=== PATIENT | female | born 1965 | race Caucasian/White ===

== ENCOUNTER → 2017-06-25 | Outpatient (CLI) | payer OTHER ==
[~2017-06-25] MED LIST: ACET650T40 PO; ALLO-2 PO; ALLO100T70 PO; BUPR-472 PO; BUPR300T56 PO; CHOL500050 PO; CLIN-75 PO; CLOT30CR39 TP; CYAN1000 IM; DIPH-911 PO; DOXY-228 PO; DOXY25TA54 PO; FLU20 PO; FLUO-202 PO; FLUO40CA67 PO; FLUO40CA76 PO; IBUP-1687 PO; IBUP200C71 PO; LISI-362 PO; LORA-1456 PO; MAGN500C10 PO; MULT-885 PO; OMEG300C PO; ONDA4TAB PO; ONDA8TAB91 PO; OXYC-865 PO; PANT40TA63 PO; PER PO; PHEN200T32 PO; PRE5 PO; PRED20TA6 PO; PRED50TA22 PO; RAN150 PO; RANI150C17 PO; SULF-198 PO; [UNRECOGNIZED DRUG - CODE] PO; [UNRECOGNIZED DRUG - CODE] PO; [UNRECOGNIZED DRUG - REMARK] PO
--- NOTE | 2017-06-26 08:55 | RADIOLOGY IMAGING REPORT ---
FACILITY: [facility] PATIENT NAME: WEST TINOCO : [id number] MR: [id number] V: [id number] EXAM DATE: ORDERING PHYSICIAN: AMY DUEÑAS TECHNOLOGIST: Мария Marley PROCEDURE:BILATERAL DIGITAL SCREENING MAMMOGRAM WITH CAD ASSISTED INTERPRETATION AND 3D BREAST TOMOSYNTHESIS. COMPARISON:Prior mammograms dated 12/20/13, 06/26/10. INDICATIONS:SCREENING FINDINGS: A small amount of fibroglandular tissue is seen throughout the breasts. The parenchymal pattern has remained stable when allowing for difference in mammographic technique and patient positioning. There is no evidence of malignant appearing mass, malignant appearing calcification or other secondary sign of malignancy in either breast. DIAGNOSTIC CATEGORY 1--NEGATIVE. RECOMMENDATIONS: ROUTINE MAMMOGRAM AND CLINICAL EVALUATION. IMPRESSION: Bi-RADS 1: No significant abnormality is seen. Images were reviewed with R2CAD and 3D breast tomosynthesis. Dictated by: Stefani Lee M.D. on 06/25/2017 at 15:53 Transcribed by: JEFFREY on 06/25/2017 at 18:38 Approved by: Stefani Lee M.D. on 06/26/2017 at 8:54 [facility]
== END ==
LOC: MAMO 00:36
PROVIDERS: ATTEND Emergency Medicine
DX: Z12.31 Encounter for screening mammogram for malignant neoplasm of breast (principal)
CPT/HCPCS: 77063; 77067

== ENCOUNTER 2017-07-17 08:57 | Outpatient (RCR) | payer OTHER ==
--- NOTE | 2017-05-09 07:45 | ONC Progress Note - NP.Halsey ---
Patient History Date of Service May 09, 2017 Reason For Visit/HPI Patient is seen in the clinic today for follow-up of her recently diagnosed autoimmune hemolytic anemia. Patient is currently on prednisone. She previously was complaining of some sweating, shortness of breath and wheezing, however this is improved as the doses been able to be decreased. Patient has had increased weight will be in on prednisone. She is trying to watch her weight and is trying to eat more vegetables and protein. She continues to have pain in her back which she reports radiates down to her feet with occasional numbness and tingling. This occurs more often to as she is walking that it does at rest. She denies any trauma to the back. She has tried some exercises but does not believe this is helping. He has tried Aleve with minimal results She will contact her primary care provider and have it evaluated. Problem List (1) Autoimmune hemolytic anemia Oncology History Diagnosis 1. Endocervical carcinoma. 2. Gout. 3. Depression. 4. Autoimmune hemolytic anemia, warm antibody. Patient was started on prednisone with a taper. Platelets have remained in a stable range. CHIEF COMPLAINT Patient is here today for followup of her autoimmune hemolytic anemia. ONCOLOGY HISTORY The patient is a 51-year-old woman. Presentation for postcoital bleeding. PROCEDURES 1. Cervical biopsy done January 10, 2014, which came back positive for adenocarcinoma of the endocervix. 2. Radical abdominal hysterectomy with bilateral salpingo-oophorectomy with bilateral pelvic lymph node dissection done February 13, [address] Stanislav Espinoza in [place]. 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 There was negative lymphovascular invasion, focally involving the mucosal margin at three to six quadrants. A total of 11 pelvic lymph nodes were examined and all came back negative for malignancy. STAGE Stage IB (pT1b, pN0 cM0). TREATMENT Patient received chemoradiation between March 13, 2014 through April 22, 2014. She received five weekly doses of Cisplatin during her radiation therapy. Medical History Family History: FH: HTN (hypertension) FATHER MOTHER FH: colon cancer Sister (39) Paternal Uncle, , Age:50's - 60 FH: colon polyps FATHER Brother FH: diabetes mellitus MOTHER FH: hyperlipidemia MOTHER FH: uterine cancer Paternal Grandmother Psychosocial History Social History The patient is . Does not have children. 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 No abuse of tobacco, alcohol or drugs. Smoking History: No (1 PPD X 20 YRS. QUIT 2011) Smoking Status: Former Smoker Medications and Allergies Active Scripts Prednisone (PREDNISONE) 20 Mg Tablet, 90 MG PO QDAY, #120 TAB 1 Refill Prov:ROSEAMRIE PAUL ACCOUNT SERVICES REPRESENTATIVE-BC, ONC 03/24/17 Lisinopril (LISINOPRIL) 10 Mg Tablet, 1 TAB PO QDAY, #90 TAB 3 Refills Prov:AMY DUEÑAS MD 10/07/16 Allopurinol (Allopurinol) 300 Mg Tablet, 1 TAB PO DAILY, #90 TAB 4 Refills Prov:AMY DUEÑAS MD 09/23/16 Reported Medications Pantoprazole Sodium (PROTONIX) 40 Mg Tablet.dr, 40 MG PO QDAY, TAB.SR 02/21/17 Ibuprofen (ADVIL) 200 Mg Tablet, 2 TAB PO PRN Y for PAIN 09/19/16 Acetaminophen (ACETAMINOPHEN) 650 Mg Tablet.er, 2 TAB PO PRN for PAIN, TAB 09/19/16 Doxylamine Succinate (UNISOM SLEEP AID) 25 Mg Tablet, 1 TAB PO HS 09/19/16 Ranitidine Hcl (RANITIDINE HCL) 150 Mg Capsule, 1 CAP PO DAILY Y for HEARTBURN, CAPSULE 09/19/16 Allergies: Coded Allergies: cephalexin (Verified Allergy, Intermediate, HIVES, SWELLING, 12/10/16) Review of System/Physical Exam Review of Systems All Systems Reviewed/Normal: Yes, Except as Noted Musculoskeletal: Positive for Muscle Pain, Positive for Joint Pain, Positive for Bone Pain Neurologic: Tingling of Feet Physical Exam Vital Signs Temperature: 98.2 Pulse: 98 BP Systolic: 131 BP Diastolic: 88 Respiratory Rate: 16 O2 SAT: 94 O2 Delivery: Room Air Height (inches) 68.00 Weight lb: 262 Weight oz: 8.0 Weight Kg (Matthias): [phone] Pain: 3 ECOG Score: 1 General: Stable, Well Developed, Well Nourished, Not In Acute Distress Neck: Supple Lungs: Clear to Auscultation Heart: Regular Rate, Regular Rhythm, No Gallops, No Murmurs Abdomen: Soft and Nontender, Other Extremities: No Cyanosis, No Clubbing, No Edema Psychiatric: Mood appears normal, Affect appears normal Skin: No Bruising (bruising has significantly improved) Diagnostic Studies Diagnostic Studies Laboratory Item Value Date Time White Blood Count 6.1 k/uL 05/09/17899 Red Blood Count 3.96 M/uL L 05/09/17899 Hemoglobin 12.9 g/dL 05/09/17899 Hematocrit 38.4 % 05/09/17899 Mean Corpuscular Volume 97.1 fL H 05/09/17899 Mean Corpuscular Hemoglobin 32.6 pg 05/09/17899 Mean Corpuscular Hemoglobin Concent 33.6 g/dL 05/09/17899 Red Cell Distribution Width 15.3 % H 05/09/17899 Platelet Count 297 K/uL 05/09/17899 Item Value Date Time Hemoglobin 13.3 g/dL 05/02/17 0000 Hematocrit 38.4 % 05/02/17 White Blood Count 8.0 k/uL 05/02/17 Mean Corpuscular Hemoglobin Concent 34.6 g/dL 05/02/17 Assessment and Plan Assessment & Plan ASSESSMENT 1. Autoimmune hemolytic anemia, proved by high absolute reticulocyte count, high LDH at 654, low haptoglobin less than 10. Patient started treatment with prednisone 100 mg daily with improvement of her hemoglobin from 9.1 to 11.4. It was then decreased to 90 mg daily and her hemoglobin was 13.2 and patient actually felt better with improvement of her energy. She then decreased from 90 mg to 70 mg. She has her hemoglobin checked weekly. It has remained stable so she has been able to decrease the prednisone dose by 20 mg until until she reached the 30 mg dose and then has been decreasing by 5 mg weekly. She is currently on 20 mg and is scheduled to start 15 mg tomorrow. Platelet level is 297,000. Patient has been called with results. 2. 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 Pathology was positive for 1.3 cm adenocarcinoma of the endocervix with positive cervical margin. Because of the positive margin the patient received chemotherapy and radiation therapy. She received treatment with chemoradiation between March 13, 2014 through April 22, 2014. She received five weekly doses of cisplatin during her radiation therapy. Patient currently is doing very well. Her last CA-125 was normal at 20 and the patient in complete remission. We will continue to follow every three months with CBC, chem panel and CA-125. 3. Gout with intermittent flare-ups, on allopurinol. 4. Depression, on treatment. PLAN 1. Continue prednisone taper. I will decrease the dose from 90 to 70 mg. CBC to be checked weekly. Will be on 15 mg for platelet count of 297,000 2. Continue prednisone taper by 5 mg weekly as long as her hemoglobin is stable and normal. 3. Patient to return in one month with CBC 4. Patient to contact us for any new concern or complaints. Return to clinic in 4 weeks 5. Follow with primary for her continuous back pain with radiating pain to her feet causing tingling I personally spent a total of 20 minutes. Of that 15 minutes was counseling/ coordination of patient's care. See my note above for details. Copies to: AMY DUEÑAS MD, NANCY J ACCOUNT SERVICES REPRESENTATIVE-BC, ONC May 09, 2017 07:45
[2017-05-09 08:47] VITALS: BP_SYST 139; BP_SYST 146; BP_DIAS 89; BP_DIAS 93
[2017-05-09 09:17] LABS: PLATELET COUNT, AUTOMATED 297 K/uL (150-450)
[2017-05-19 09:19] LABS: PLATELET COUNT, AUTOMATED 312 K/uL (150-450)
--- NOTE | 2017-05-19 15:27 | Oncology Note ---
Patient calls the clinic today for results of her platelet level. Platelet level is currently over 300,000 and remains stable, previously it was 297,000. Patient is currently on 15 mg of prednisone daily and will decrease it to 10 mg daily 7 days and have a repeat platelet level. As long as this remains stable patient will decrease to 5 mg daily 7 days and then 2.5 mg 7 days and then discontinue. Prescription for 5 mg tabs of prednisone was sent to [facility]. ROSEMARIE PAUL-BC, ONC May 19, 2017 15:27
[2017-05-26 08:14] VITALS: BP 136/98
[2017-05-26 08:22] LABS: PLATELET COUNT, AUTOMATED 276 K/uL (150-450)
[2017-06-04 08:24] LABS: PLATELET COUNT, AUTOMATED 205 K/uL (150-450)
[2017-06-04 08:35] VITALS: BP 136/72
--- NOTE | 2017-06-05 08:20 | ONC Progress Note - NP.Halsey ---
Patient History Date of Service Jun 05, 2017 Reason For Visit/HPI Patient is seen in the clinic today for follow-up of her recently diagnosed autoimmune hemolytic anemia. Patient is currently on prednisone 2.5 mg daily. She has been tapering the dose and her labs remained relatively stable. They have decreased with each dose but still in a normal range. She did gain quite a bit of weight and is able to maintain and is trying to lose weight. She was having difficulty walking due to back pain. She recently had an MRI and will be referred to orthopedics for further evaluation. She was also started on vitamin D 50,000 units 3 times a week for vitamin D deficiency. Her primary care also changed her medication of Paxil to Wellbutrin to see if that would help with mood and weight management. She will follow with primary care in 2 weeks. She denies any abdominal discomfort. She has not followed for her cervical cancer recently. I will draw CA 125 and she will follow to review these labs. Problem List (1) Cervical cancer (2) Depression (3) Autoimmune hemolytic anemia Oncology History Diagnosis 1. Endocervical carcinoma. 2. Gout. 3. Depression. 4. Autoimmune hemolytic anemia, warm antibody. Patient was started on prednisone with a taper. Platelets have remained in a stable range. CHIEF COMPLAINT Patient is here today for followup of her autoimmune hemolytic anemia. ONCOLOGY HISTORY The patient is a 51-year-old woman. Presentation for postcoital bleeding. PROCEDURES 1. Cervical biopsy done January 10, 2014, which came back positive for adenocarcinoma of the endocervix. 2. Radical abdominal hysterectomy with bilateral salpingo-oophorectomy with bilateral pelvic lymph node dissection done February 13, [address] Stanislav Espinoza in [place]. 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 There was negative lymphovascular invasion, focally involving the mucosal margin at three to six quadrants. A total of 11 pelvic lymph nodes were examined and all came back negative for malignancy. STAGE Stage IB (pT1b, pN0 cM0). TREATMENT Patient received chemoradiation between March 13, 2014 through April 22, 2014. She received five weekly doses of Cisplatin during her radiation therapy. Medical History Family History: FH: HTN (hypertension) FATHER MOTHER FH: colon cancer Sister (39) Paternal Uncle, , Age:50's - 60 FH: colon polyps FATHER Brother FH: diabetes mellitus MOTHER FH: hyperlipidemia MOTHER FH: uterine cancer Paternal Grandmother Psychosocial History Social History The patient is . Does not have children. 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. No abuse of tobacco, alcohol or drugs. Smoking History: No (1 PPD X 20 YRS. QUIT 2011) Smoking Status: Former Smoker Medications and Allergies Active Scripts Bupropion Hcl (WELLBUTRIN XL) 150 Mg Tab.er.24h, 150 MG PO QDAY, #30 TAB Take 1 daily or 4 days then increase to 2 every morning Prov:AMY DUEÑAS MD 06/04/17 Cholecalciferol (Vitamin D3) (VITAMIN D3) 50,000 Unit Capsule, 81873 UNIT PO 3XW , #36 CAPSULE Prov:AMY DUEÑAS MD 06/04/17 Prednisone 5 Mg Tab (PREDNISONE 5 MG TAB) 5 Mg Tablet, 5 MG PO BID, #30 TAB Take 10 mg daily x 7 days then decrease to 5mg daily x 7 days then 2.5mg daily x 7 days then stop Prov:ROSEMARIE PAUL STEAM TENDER-BC, ONC 05/19/17 Lisinopril (LISINOPRIL) 10 Mg Tablet, 1 TAB PO QDAY, #90 TAB 3 Refills Prov:AMY DUEÑAS MD 10/07/16 Allopurinol (Allopurinol) 300 Mg Tablet, 1 TAB PO DAILY, #90 TAB 4 Refills Prov:AMY DUEÑAS MD 09/23/16 Reported Medications Acetaminophen (ACETAMINOPHEN) 650 Mg Tablet.er, 2 TAB PO PRN for PAIN, TAB 09/19/16 Doxylamine Succinate (UNISOM SLEEP AID) 25 Mg Tablet, 1 TAB PO HS 09/19/16 Ranitidine Hcl (RANITIDINE HCL) 150 Mg Capsule, 1 CAP PO DAILY Y for HEARTBURN, CAPSULE 09/19/16 Discontinued Reported Medications Pantoprazole Sodium (PROTONIX) 40 Mg Tablet.dr, 40 MG PO QDAY, TAB.SR 02/21/17 Ibuprofen (ADVIL) 200 Mg Tablet, 2 TAB PO PRN Y for PAIN 09/19/16 Allergies: Coded Allergies: cephalexin (Verified Allergy, Intermediate, HIVES, SWELLING, 12/10/16) Review of System/Physical Exam Review of Systems Constitutional: Positive for Appetite/Weight Change (weight gain thought to be related to steroid therapy) Hematologic: Positive for Fatigue Musculoskeletal: Positive for Muscle Pain, Positive for Bone Pain Psychiatric: Depression Physical Exam Vital Signs Temperature: 97.2 Pulse: 93 BP Systolic: 136 BP Diastolic: 72 Respiratory Rate: 16 O2 SAT: 94 O2 Delivery: Room Air Height (inches) 68.00 Weight lb: 262 Weight oz: 8.0 Weight Kg (Matthias): [id number] Pain: 2 ECOG Score: 1 General: Stable, Well Developed, Well Nourished, Not In Acute Distress HEENT: No Trauma, No Conjunctivitis, No Icterus Lungs: Clear to Auscultation Heart: Regular Rate, Regular Rhythm, No Gallops Abdomen: Soft and Nontender, No Hepatosplenomegaly, No Masses Extremities: No Cyanosis, No Clubbing, No Edema Psychiatric: Mood appears normal, Affect appears normal Skin: No Skin Rashes, No Bruising, No Purpura Diagnostic Studies Diagnostic Studies Laboratory Laboratory Tests 06/04/17 08:15 Laboratory Tests 05/09/17 09:00: Peripheral Blood Smear Yes 06/04/17 08:15: White Blood Count 4.6, Red Blood Count 4.04, Hemoglobin 12.9, Hematocrit 38.5, Mean Corpuscular Volume 95.4, Mean Corpuscular Hemoglobin 31.9, Mean Corpuscular Hemoglobin Concent 33.5, Red Cell Distribution Width 15.6, Platelet Count 205, Mean Platelet Volume 6.7, Neutrophils (%) (Auto) 72.7, Lymphocytes (% ) (Auto) 14.1, Monocytes (%) (Auto) 10.4, Eosinophils (%) (Auto) 1.3, Basophils (%) (Auto) 1.5, Nucleated RBC Relative Count (auto) 0.1, Neutrophils # (Auto) 3.4, Lymphocytes # (Auto) 0.7, Monocytes # (Auto) 0.5, Eosinophils # (Auto) 0.1 , Basophils # (Auto) 0.1, Nucleated RBC Absolute Count (auto) 0.01 Assessment and Plan Assessment & Plan ASSESSMENT 1. Autoimmune hemolytic anemia, proved by high absolute reticulocyte count, high LDH at 654, low haptoglobin less than 10. Patient started treatment with prednisone 100 mg daily with improvement of her hemoglobin from 9.1 to 11.4. It was then decreased to 90 mg daily and her hemoglobin was 13.2 and patient actually felt better with improvement of her energy. She then decreased from 90 mg to 70 mg. She has her hemoglobin checked weekly. It has remained stable so she has been able to decrease the prednisone dose by 20 mg until until she reached the 30 mg dose and then has been decreasing by 5 mg weekly. She is currently on 2.5 mg x 4 days and then will decrease to 2.5 every other day. She will repeat labs after [place] to include CBC, CMP and CEA 125. Platelet level is currently 205,000, hemoglobin is 12.9 and has remained stable. 2. 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 Pathology was positive for 1.3 cm adenocarcinoma of the endocervix with positive cervical margin. Because of the positive margin the patient received chemotherapy and radiation therapy. She received treatment with chemoradiation between March 13, 2014 through April 22, 2014. She received five weekly doses of cisplatin during her radiation therapy. Patient currently is doing very well. Her last CA-125 was normal at 20 and the patient in complete remission. Patient will be followed in 2 weeks to review labs to include CBC, chem panel and CA-125. She is asymptomatic and has no evidence of recurrence. Recent MRI showed no soft tissue abnormalities 3. Gout with intermittent flare-ups, on allopurinol. 4. Depression, on treatment. Recently change from Paxil to Wellbutrin 5. Back pain and leg pain. Recent MRI completed showing arthritis. Patient will be referred to orthopedics for further evaluation. 6. Vitamin D deficiency. Patient is currently on 50,000 units vitamin D3 3 days a week. She will follow with primary as scheduled. PLAN 1. Continue prednisone taper. She is currently on 2.5 mg and will decrease to 2.5 every other day. 2. She will return in 2 weeks with repeat CBC, CMP, and CA 125 3 patient will be followed in the clinic for her autoimmune hemolytic anemia and her endocervical adenocarcinoma. I personally spent a total of 20 minutes. Of that 15 minutes was counseling/ coordination of patient's care. See my note above for details. Copies to: AMY DUEÑAS MD, NANCY J STEAM TENDER-BC, ONC Jun 05, 2017 08:20
[2017-06-05 08:36] VITALS: BP 126/86
[2017-06-18 13:46] VITALS: BP 118/82
[2017-06-18 13:49] LABS: PLATELET COUNT, AUTOMATED 293 K/uL (150-450)
[2017-06-19 10:06] VITALS: BP 119/85
--- NOTE | 2017-06-19 18:44 | ONCOLOGY FOLLOW UP NOTE ---
EVENT DATE: June 19, 2017 DIAGNOSES 1. Endocervical carcinoma. 2. Gout. 3. Depression. 4. Autoimmune hemolytic anemia, warm antibody. CHIEF COMPLAINT Patient is here today for followup of her autoimmune hemolytic anemia and endocervical carcinoma. ONCOLOGY HISTORY The patient is a 51-year-old woman. Presentation for postcoital bleeding. PROCEDURES 1. Cervical biopsy done January 10, 2014, which came back positive for adenocarcinoma of the endocervix. 2. Radical abdominal hysterectomy with bilateral salpingo-oophorectomy with bilateral pelvic lymph node dissection done February 13, [address] Stanislav Espinoza in [place]. 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 There was negative lymphovascular invasion, focally involving the mucosal margin at three to six quadrants. A total of 11 pelvic lymph nodes were examined and all came back negative for malignancy. STAGE Stage IB (pT1b, pN0 cM0). TREATMENT Patient received chemoradiation between March 13, 2014 through April 22, 2014. She received five weekly doses of Cisplatin during her radiation therapy. HISTORY OF PRESENT ILLNESS Patient is here today for followup of her autoimmune hemolytic anemia and endocervical adenocarcinoma. She is complaining of pain in her legs and weakness in the thigh muscles. She has also some neuropathic symptoms in her feet, and the patient was found to have moderate spinal stenosis in the lower back lately, and she is followed by her orthopedic surgeon. She had cellulitis of the skin of the abdominal wall, currently on Bactrim for that, which is getting better. PAST SURGICAL HISTORY 1. Tonsillectomy as a child. 2. [place] tooth extraction. 3. Radical hysterectomy with bilateral salpingo-oophorectomy, and bilateral pelvic lymph node dissection done on February 03, 2014. FAMILY HISTORY Sister with colon cancer at the age of 39. Brother had eight polyps during his colonoscopy. Maternal uncle with colon cancer in his 50's. Another paternal uncle with colon cancer at old age. Paternal grandmother with uterine cancer. Two maternal aunts with breast cancer at old age. Father with basal cell carcinoma of the skin. SOCIAL HISTORY The patient is . Does not have children. 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 No abuse of tobacco, alcohol or drugs. CURRENT MEDICATIONS 1. Fluoxetine hydrochloride 40 mg daily. 2. Ibuprofen 200 mg every six hours p.r.n. 3. Unisom 50 mg at bedtime. 4. Zantac 150 mg as needed. 5. Caffeine 100 mg every morning, chewable. ALLERGIES CEPHALEXIN which causes generalized hives. REVIEW OF SYSTEMS CONSTITUTIONAL: Patient has some sweating. HEENT: Ears: No tinnitus or hearing problem. Nose: The patient has runny nose. Throat: No sore throat or mouth ulcers. Eyes: No diplopia or visual changes. RESPIRATORY: She has shortness of breath and wheezing. CARDIOVASCULAR: No chest pain, orthopnea, or paroxysmal nocturnal dyspnea (PND) . No edema. No palpitations. GASTROINTESTINAL: She has diarrhea most of the time for the last week with nonbloody loose stools. GENITOURINARY: No hematuria or dysuria. MUSCULOSKELETAL: Patient has pain in her legs. NEUROLOGICAL: She has weakness in the thigh muscles, most probably from her prednisone therapy. She has also neuropathic symptoms on her feet due to moderate spinal stenosis of the lower back. HEMATOLOGICAL: She bruises easily. Her fatigue is getting much better since she started on prednisone. SKIN: She had recent cellulitis of the abdominal wall, which is under treatment with Bactrim. PSYCHIATRIC: No anxiety or depression. PHYSICAL EXAMINATION GENERAL: Looks stable. Well-developed, well-nourished, and in no acute distress. VITAL SIGNS: Blood pressure 119/85, pulse 95 per minute, respirations 16 per minute, temperature 98.5, pulse ox 93% on room air. HEENT: Head: Atraumatic. No sinus tenderness to palpation. Eyes: No icterus or conjunctivitis. Mouth and throat: No oral thrush or mucositis. NECK: Supple. No cervical or supraclavicular lymphadenopathy. LUNGS: Clear to auscultation and percussion bilaterally. HEART: Regular rate and rhythm. No gallops, murmurs, clicks or rubs. ABDOMEN: Soft and lax. No tenderness. Scar from recent surgery is noted and healing very well. No hepatosplenomegaly. No masses. EXTREMITIES: No cyanosis, clubbing or edema. LYMPHATICS: No peripheral lymphadenopathy. NEUROLOGICAL: Conscious, alert and oriented times three. No focal motor or sensory deficits. PSYCHIATRIC: Mood and affect appear normal. SKIN: No skin rash, bruise or purpuric eruption. DIAGNOSTIC DATA CBC showed a white count of 5.3, hemoglobin 13.2, hematocrit 39.2, platelets 293 ,000. Chem panel totally normal, except sodium 134, carbon dioxide 21, blood sugar 115, AST 39. CA-125 is pending. ASSESSMENT 1. Autoimmune hemolytic anemia, proved by high absolute reticulocyte count, high LDH at 654, low haptoglobin less than 10. Patient started treatment with prednisone 100 mg with improvement of her hemoglobin from 9.1 to 11.4. She continued prednisone taper after that, and currently she is on 2.5 mg for the last 10 days. Her current hemoglobin is normal at 13.2 and hematocrit 39.2. I am planning to stop her prednisone. I will see her again in a month with CBC. Patient was advised, if she feels weak, tired and fatigued, to contact us and to get her blood count checked to see if she has a relapse of her autoimmune hemolytic anemia or not. If the patient will develop relapse of her autoimmune hemolytic anemia I will consider treatment with rituximab in the future. 2. Stage IB (pT1b, pN0 cM0) endocervical adenocarcinoma status post radical hysterectomy and pelvic lymph node dissection with bilateral salpingo- oophorectomy done February 03, 2014. Pathology was positive for 1.3 cm adenocarcinoma of the endocervix with positive cervical margin. Because of the positive margin the patient received chemotherapy and radiation therapy. She received treatment with chemoradiation between March 13, 2014 through April 22, 2014. She received five weekly doses of cisplatin during her radiation therapy. Patient is currently in complete remission. Her CA-125 is pending for today. Patient currently in complete remission without any symptoms. I will see her again in three months with CBC, chem panel and CA- 125. 3. Gout with intermittent flare-ups, on allopurinol. 4. Depression, on treatment. PLAN 1. Stop prednisone. 2. Patient to return in one month with CBC, chem panel. 3. Await the result of the CA-125 today. 4. Patient is to contact us for any new concerns or complaints. MTDD
[2017-07-14 08:28] VITALS: BP 126/96
[2017-07-14 08:46] LABS: PLATELET COUNT, AUTOMATED 273 K/uL (150-450)
[~2017-07-17] VITALS: Ht 172.7 cm; Wt 127.3 kg
[2017-07-17 09:11] VITALS: BP 115/76
--- NOTE | 2017-07-17 09:19 | ONC Progress Note - NP.Halsey ---
Patient History Date of Service Jul 17, 2017 Reason For Visit/HPI Patient is seen in the clinic today for follow-up of her recently diagnosed autoimmune hemolytic anemia. Patient previously was on prednisone 2.5 mg daily and this was decreased further and then discontinued on 06-19-17. Labs drawn today show a normal hemoglobin. She shares that since being off of prednisone she has been able to lose some weight. She is also feeling better currently on Wellbutrin. She had a mammogram completed which was normal. In review of healthcare screening, she had a colonoscopy last year and reports that there is no need to repeat for 10 years. She has started on vitamin D 50,000 units 3 times a week for her deficiency and is been followed by primary care for management. She has not had cholesterol, TSH or iron studies completed and will obtain health fair labs because she can get them free at work. She also has not had a PATTERN DATA OPERATOR exam. She will schedule this at her primary care provider in the near future. In review, today she reports that her lower extremity weakness in her legs is improved. Her lower back pain with radiating numbness to her feet is reported to be a hereditary skeletal structure which she should receive surgery. Her brother completed surgery recently and reports complete resolution. She will consider this but would like to lose some weight prior to the procedure. No concerns today. Problem List (1) Depression (2) Cervical cancer (3) Morbid obesity (4) Autoimmune hemolytic anemia Oncology History Diagnosis 1. Endocervical carcinoma. 2. Gout. 3. Depression. 4. Autoimmune hemolytic anemia, warm antibody. Patient was started on prednisone with a taper. Platelets have remained in a stable range. CHIEF COMPLAINT Patient is here today for followup of her autoimmune hemolytic anemia. ONCOLOGY HISTORY The patient is a 51-year-old woman. Presentation for postcoital bleeding. PROCEDURES 1. Cervical biopsy done January 10, 2014, which came back positive for adenocarcinoma of the endocervix. 2. Radical abdominal hysterectomy with bilateral salpingo-oophorectomy with bilateral pelvic lymph node dissection done February 13, [address] Stanislav Espinoza in [place]. 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 There was negative lymphovascular invasion, focally involving the mucosal margin at three to six quadrants. A total of 11 pelvic lymph nodes were examined and all came back negative for malignancy. STAGE Stage IB (pT1b, pN0 cM0). TREATMENT Patient received chemoradiation between March 13, 2014 through April 22, 2014. She received five weekly doses of Cisplatin during her radiation therapy. Medical History Family History: FH: HTN (hypertension) FATHER MOTHER FH: colon cancer Sister (39) Paternal Uncle, , Age:50's - 60 FH: colon polyps FATHER Brother FH: diabetes mellitus MOTHER FH: hyperlipidemia MOTHER FH: uterine cancer Paternal Grandmother Psychosocial History Social History The patient is . Does not have children. 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 No abuse of tobacco, alcohol or drugs. Smoking History: No (1 PPD X 20 YRS. QUIT 2011) Smoking Status: Former Smoker Medications and Allergies Active Scripts Bupropion Hcl (BUPROPION XL) 300 Mg Tab.er.24h, 300 MG PO QDAY, #90 TAB 3 Refills Prov:AMY DUEÑAS MD 06/18/17 Cholecalciferol (Vitamin D3) (VITAMIN D3) 50,000 Unit Capsule, 37323 UNIT PO 3XW , #36 CAPSULE Prov:AMY DUEÑAS MD 06/04/17 Lisinopril (LISINOPRIL) 10 Mg Tablet, 1 TAB PO QDAY, #90 TAB 3 Refills Prov:AMY DUEÑAS MD 10/07/16 Allopurinol (Allopurinol) 300 Mg Tablet, 1 TAB PO DAILY, #90 TAB 4 Refills Prov:AMY DUEÑAS MD 09/23/16 Reported Medications Acetaminophen (ACETAMINOPHEN) 650 Mg Tablet.er, 2 TAB PO PRN for PAIN, TAB 09/19/16 Doxylamine Succinate (UNISOM SLEEP AID) 25 Mg Tablet, 1 TAB PO HS 09/19/16 Ranitidine Hcl (RANITIDINE HCL) 150 Mg Capsule, 1 CAP PO DAILY Y for HEARTBURN, CAPSULE 09/19/16 Discontinued Scripts Sulfamethoxazole/Trimet 800-160 Mg Tab (BACTRIM DS TABLET) 1 Each Tablet, 1 TAB PO Q12H, #20 TAB Prov:JIMMY BOLAÑOS PA-C 06/13/17 Prednisone 5 Mg Tab (PREDNISONE 5 MG TAB) 5 Mg Tablet, 5 MG PO BID, #30 TAB Take 10 mg daily x 7 days then decrease to 5mg daily x 7 days then 2.5mg daily x 7 days then stop Prov:ROSEMARIE PAUL AIRBRUSH PAINTER-BC, ONC 05/19/17 Allergies: Coded Allergies: cephalexin (Verified Allergy, Intermediate, HIVES, SWELLING, 06/13/17) Review of System/Physical Exam Review of Systems All Systems Reviewed/Normal: Yes, Except as Noted Hematologic: Positive for Fatigue, Positive for Weakness Musculoskeletal: Positive for Bone Pain Psychiatric: Depression Physical Exam Vital Signs Temperature: 97.6 Pulse: 88 BP Systolic: 126 BP Diastolic: 96 Respiratory Rate: 18 O2 SAT: 94 O2 Delivery: Room Air Height (inches) 68.00 Weight lb: 262 Weight oz: 8.0 Weight Kg (Matthias): [phone] Pain: 0 ECOG Score: 1 General: Stable, Well Developed, Well Nourished, Not In Acute Distress HEENT: No Trauma, No Conjunctivitis Neck: Supple Lungs: Clear to Auscultation Heart: Regular Rate, Regular Rhythm, No Gallops Abdomen: Soft and Nontender, No Hepatosplenomegaly, No Masses Extremities: No Cyanosis, No Clubbing, No Edema Lymphadenopathy: No Cervical Psychiatric: Mood appears normal, Affect appears normal Skin: No Skin Rashes, No Bruising, No Purpura Diagnostic Studies Diagnostic Studies Laboratory Laboratory Tests 07/14/17 08:30 Laboratory Tests 05/09/17 09:00: Peripheral Blood Smear Yes 06/18/17 13:33: CA 125 Antigen 21 07/14/17 08:30: White Blood Count 4.1, Red Blood Count 4.30, Hemoglobin 13.6, Hematocrit 39.8, Mean Corpuscular Volume 92.6, Mean Corpuscular Hemoglobin 31.7, Mean Corpuscular Hemoglobin Concent 34.2, Red Cell Distribution Width 14.7, Platelet Count 273, Mean Platelet Volume 7.2, Neutrophils (%) (Auto) 72.9, Lymphocytes (% ) (Auto) 12.9, Monocytes (%) (Auto) 11.1, Eosinophils (%) (Auto) 2.6, Basophils (%) (Auto) 0.5, Nucleated RBC Relative Count (auto) 0.4, Neutrophils # (Auto) 3.0, Lymphocytes # (Auto) 0.5, Monocytes # (Auto) 0.5, Eosinophils # (Auto) 0.1 , Basophils # (Auto) 0.0, Nucleated RBC Absolute Count (auto) 0.02, Sodium Level 137, Potassium Level 4.3, Chloride Level 102, Carbon Dioxide Level 23, Blood Urea Nitrogen 20, Creatinine 1.00, Glomerular Filtration Rate Calc 58.9, Random Glucose 114, Calcium Level 9.1, Total Bilirubin 0.5, Aspartate Amino Transf (AST/SGOT) 39, Alanine Aminotransferase (ALT/SGPT) 56, Alkaline Phosphatase 50, Total Protein 6.3, Albumin 3.6 Radiology PROCEDURE: BILATERAL DIGITAL SCREENING MAMMOGRAM WITH CAD ASSISTED INTERPRETATION AND 3D BREAST TOMOSYNTHESIS. COMPARISON: Prior mammograms dated 12/20/13, 06/26/10. INDICATIONS: SCREENING FINDINGS: A small amount of fibroglandular tissue is seen throughout the breasts. The parenchymal pattern has remained stable when allowing for difference in mammographic technique and patient positioning. There is no evidence of malignant appearing mass, malignant appearing calcification or other secondary sign of malignancy in either breast. DIAGNOSTIC CATEGORY 1--NEGATIVE. RECOMMENDATIONS: ROUTINE MAMMOGRAM AND CLINICAL EVALUATION. IMPRESSION: Bi-RADS 1: No significant abnormality is seen. Images were reviewed with R2CAD and 3D breast tomosynthesis. CT abdomen and pelvis with IV contrast Indication: Umbilical pain and drainage. Comparison: 01/30/2016.. Technique: Axial CT images were obtained through the abdomen and pelvis during injection of nonionic iodinated intravenous contrast. Reformatted coronal and sagittal images were also obtained. One of the following dose optimization techniques was utilized in the performance of this exam: Automated exposure control; adjustment of the mA and/ or kV according to the patient's size; or use of an iterative reconstruction technique. Specific details can be referenced in the facility's radiology CT exam operational policy. Contrast: 75 ml of Isovue-370 IV contrast. Findings: Lower lung park: Limited views lower lung field are unremarkable. Liver: Liver is diffusely hypodense consistent fatty infiltration with some focal fatty sparing around gallbladder fossa. This is unchanged. No focal lesions are identified. Biliary: Gallbladder appears unremarkable as well as the intra and extra hepatic biliary system. Pancreas: Normal appearance. Spleen: Normal appearance. Adrenal glands: Unremarkable. Kidneys / retroperitoneum: No evidence of nephrolithiasis or hydronephrosis. Left kidney shows 2 subcentimeter hypodensities which are stable most likely tiny cysts but too small characterize. The right kidney shows no discrete lesion. Bowel / peritoneum / mesenteries: The visualized gastrointestinal tract, including the appendix, within normal limits. The stomach is unremarkable. No free air, free fluid, fluid collections or areas of inflammation seen within the abdomen and pelvis. There are small umbilical hernia containing fat. Adjacent to the right side of the umbilicus is a linear area of inflammation and soft tissue density which could be induration along the incision site. There is no discrete well-formed fluid collection or abscess. Lymph node assessment: No pathologic adenopathy identified. Pelvic structures: Status post hysterectomy. The remaining pelvic structures visualized within normal limits. Vessels: No significant atherosclerotic calcifications seen throughout a nonaneurysmal abdominal aorta and branches. Musculoskeletal / Body wall: No acute or aggressive osseous abnormality. Degenerative changes spine. IMPRESSION: 1. Just to the right of the umbilicus, is a linear area of soft tissue density and induration/inflammation which may be along a new incision site. There is no well-formed fluid collection or abscess. No extension into the abdominal cavity. 2. Other chronic stable findings as above. Report Dictated By: Ken Miranda at 06/13/2017 2:15 PM Assessment and Plan Assessment & Plan ASSESSMENT 1. Autoimmune hemolytic anemia, proved by high absolute reticulocyte count, high LDH at 654, low haptoglobin less than 10. Patient started treatment with prednisone 100 mg daily with improvement of her hemoglobin from 9.1 to 11.4. It was then decreased to 90 mg daily and her hemoglobin was 13.2 and patient actually felt better with improvement of her energy. She then decreased from 90 mg to 70 mg. She had her hemoglobin checked weekly. It remained stable so she was able to decrease the prednisone dose by 20 mg until until she reached the 30 mg dose and then has been decreasing by 5 mg weekly and then 2.5 and discontinued on 06-19-17. Hemoglobin remains stable and in a normal range today. Patient is feeling well being off of the prednisone. No concerns today. She will repeat CBC, CMP in 3 months. 2. 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 Pathology was positive for 1.3 cm adenocarcinoma of the endocervix with positive cervical margin. Because of the positive margin the patient received chemotherapy and radiation therapy. She received treatment with chemoradiation between March 13, 2014 through April 22, 2014. She received five weekly doses of cisplatin during her radiation therapy. Patient currently is doing very well. Her last CA-125 was normal at 20 and most recent drawn was 21. The patient is in complete remission. She is asymptomatic and has no evidence of recurrence. Recent diagnostic study showed no soft tissue abnormalities. She will repeat a CA 125 tumor marker in 6 months. She is encouraged to have a PATTERN DATA OPERATOR exam through her primary care provider as she has not had one in multiple years. She is concerned about vaginal stenosis. She does have a dilator at home but has not used it. She is not sexually active. She is encouraged to share this with her provider and a small speculum will be used. 3. Gout with intermittent flare-ups, on allopurinol. 4. Depression, on treatment. Recently change from Paxil to Wellbutrin and reports that she is feeling well. 5. Back pain and leg pain. Recent MRI completed showing arthritis. Patient followed with orthopedics and received a recommendation for surgical procedure. Patient would like to wait until she loses some weight. 6. Vitamin D deficiency. Patient is currently on 50,000 units vitamin D3 3 days a week. She will follow with primary as scheduled. She is encouraged to do weightbearing exercises. Mammogram completed recently was unremarkable. Colonoscopy completed a year ago was unremarkable. PLAN 1. Completion of prednisone for her autoimmune hemolytic anemia. Follow-up in 3 months with CBC, CMP. 2. Follow-up for endocervical adenocarcinoma. Patient to follow in 3 months with CBC and CMP, CA 125 should be repeated in 6 months 3 Patient to follow with primary care provider for PATTERN DATA OPERATOR exam, cholesterol, TSH and iron studies which could be drawn through the [facility] labs. 4. Patient to call if she has questions or concerns. I personally spent a total of 30 minutes. Of that 25 minutes was counseling/ coordination of patient's care. See my note above for details. Copies to: AMY DUEÑAS MD, NANCY J AIRBRUSH PAINTER-BC, ONC Jul 17, 2017 09:19
== END 2017-08-06 ==
LOC: ONC 08:57
PROVIDERS: ATTEND Nurse Practitioner Family
DX: D59.1 Other autoimmune hemolytic anemias (principal); Z85.41 Personal history of malignant neoplasm of cervix uteri; Z92.3 Personal history of irradiation; Z92.21 Personal history of antineoplastic chemotherapy; M10.9 Gout, unspecified; Z87.891 Personal history of nicotine dependence; Z79.899 Other long term (current) drug therapy; E55.9 Vitamin D deficiency, unspecified; R53.83 Other fatigue; Z79.1 Long term (current) use of non-steroidal anti-inflammatories (NSAID)
CPT/HCPCS: 36415; 82040; 82247; 82310; 82374; 82435; 82565; 82947; 84075; 84132; 84155; 84295; 84450; 84460; 84520; 85025; 86304; 99212

== ENCOUNTER 2017-12-12 15:30 | Outpatient (RCR) | payer OTHER ==
[2017-10-06 08:54] VITALS: BP 136/97
[2017-10-06 09:06] LABS: PLATELET COUNT, AUTOMATED 250 K/uL (150-450)
[2017-10-10 08:34] VITALS: BP 128/94
--- NOTE | 2017-10-11 17:37 | ONCOLOGY FOLLOW UP NOTE ---
EVENT DATE: October 10, 2017 DIAGNOSES 1. Endocervical carcinoma. 2. Gout. 3. Depression. 4. Autoimmune hemolytic anemia, warm antibody. CHIEF COMPLAINT Patient is here today for followup of her autoimmune hemolytic anemia and endocervical carcinoma. ONCOLOGY HISTORY The patient is a 52-year-old woman. Presentation for postcoital bleeding. PROCEDURES 1. Cervical biopsy done January 10, 2014, which came back positive for adenocarcinoma of the endocervix. 2. Radical abdominal hysterectomy with bilateral salpingo-oophorectomy with bilateral pelvic lymph node dissection done February 13, [address] Stanislav Espinoza in [place]. 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 There was negative lymphovascular invasion, focally involving the mucosal margin at three to six quadrants. A total of 11 pelvic lymph nodes were examined and all came back negative for malignancy. STAGE Stage IB (pT1b, pN0 cM0). TREATMENT Patient received chemoradiation between March 13, 2014 through April 22, 2014. She received five weekly doses of Cisplatin during her radiation therapy. HISTORY OF PRESENT ILLNESS Patient is here today for followup of her autoimmune hemolytic anemia and endocervical carcinoma. She is doing fine currently. She has back pain lately. She has neuropathy in her feet with numbness. She has occasional headache. She has occasional fatigue, but other than that she is stable. PAST MEDICAL HISTORY 1. Endocervical adenocarcinoma. 2. Gout. 3. Depression. 4. Autoimmune hemolytic anemia. PAST SURGICAL HISTORY 1. Tonsillectomy as a child. 2. [place] tooth extraction. 3. Radical hysterectomy with bilateral salpingo-oophorectomy, and bilateral pelvic lymph node dissection done on February 03, 2014. FAMILY HISTORY Sister with colon cancer at the age of 39. Brother had eight polyps during his colonoscopy. Maternal uncle with colon cancer in his 50's. Another paternal uncle with colon cancer at old age. Paternal grandmother with uterine cancer. Two maternal aunts with breast cancer at old age. Father with basal cell carcinoma of the skin. SOCIAL HISTORY The patient is . Does not have children. 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 No abuse of tobacco, alcohol or drugs. CURRENT MEDICATIONS 1. Fluoxetine hydrochloride 40 mg daily. 2. Ibuprofen 200 mg every six hours p.r.n. 3. Unisom 50 mg at bedtime. 4. Zantac 150 mg as needed. 5. Caffeine 100 mg every morning, chewable. ALLERGIES CEPHALEXIN which causes generalized hives. REVIEW OF SYSTEMS CONSTITUTIONAL: Patient has some sweating. HEENT: Ears: No tinnitus or hearing problem. Nose: The patient has runny nose. Throat: No sore throat or mouth ulcers. Eyes: No diplopia or visual changes. RESPIRATORY: She has shortness of breath and wheezing. CARDIOVASCULAR: No chest pain, orthopnea, or paroxysmal nocturnal dyspnea (PND) . No edema. No palpitations. GASTROINTESTINAL: She has diarrhea most of the time for the last week with nonbloody loose stools. GENITOURINARY: No hematuria or dysuria. MUSCULOSKELETAL: She has back pain. NEUROLOGICAL: She has numbness in the feet. She has occasional headache. HEMATOLOGICAL: She has occasional fatigue. SKIN: She had recent cellulitis of the abdominal wall, which is under treatment with Bactrim. PSYCHIATRIC: No anxiety or depression. PHYSICAL EXAMINATION GENERAL: Looks stable. Well-developed, well-nourished, and in no acute distress. VITAL SIGNS: Blood pressure 128/94, pulse 95 per minute, respirations 16 per minute, temperature 97.2, pulse ox 93% on room air. HEENT: Head: Atraumatic. No sinus tenderness to palpation. Eyes: No icterus or conjunctivitis. Mouth and throat: No oral thrush or mucositis. NECK: Supple. No cervical or supraclavicular lymphadenopathy. LUNGS: Clear to auscultation and percussion bilaterally. HEART: Regular rate and rhythm. No gallops, murmurs, clicks or rubs. ABDOMEN: Soft and lax. No tenderness. Scar from recent surgery is noted and healing very well. No hepatosplenomegaly. No masses. EXTREMITIES: No cyanosis, clubbing or edema. LYMPHATICS: No peripheral lymphadenopathy. NEUROLOGICAL: Conscious, alert and oriented times three. No focal motor or sensory deficits. PSYCHIATRIC: Mood and affect appear normal. SKIN: No skin rash, bruise or purpuric eruption. DIAGNOSTIC DATA CBC showed a white count of 4.4, hemoglobin 12.4, hematocrit 35.2, platelets 250 ,000. Chem panel totally normal, except total protein 6 and carbon dioxide 19. ASSESSMENT 1. Autoimmune hemolytic anemia, diagnosed with high reticulocyte count, high LDH at 654 and low haptoglobin less than 10. Patient treated with prednisone 100 mg with improvement of her hemoglobin and normalization. She had successful prednisone taper after that and the patient is off prednisone since May 2017. Her current hemoglobin is 12.4 g/dL, which is normal. I am planning to continue followup. I will check her CBC monthly now, and I will see her in two months with CBC at that time. 2. Stage IB (pT1b, pN0 cM0) endocervical adenocarcinoma status post radical hysterectomy and pelvic lymph node dissection with bilateral salpingo- oophorectomy done February 03, 2014. Pathology was positive for 1.3 cm adenocarcinoma of the endocervix with positive cervical margin. Because of the positive margin the patient received chemotherapy and radiation therapy. She received treatment with chemoradiation between March 13, 2014 through April 22, 2014, and she received five weekly doses of cisplatin during radiation therapy. Currently she is in remission. I am planning to see her in two months, and I will check her CBC, chem panel and CA-125 at that time. 3. Gout with intermittent flare-ups, on allopurinol. 4. Depression on treatment. PLAN 1. Continue followup. 2. Patient to return in two months with CBC, chem panel and CA-125. 3. CBC in one month. 4. Patient is to contact us for any new concern or complaints. [facility]
[2017-11-05 08:29] VITALS: BP 123/81
[2017-11-05 08:42] LABS: PLATELET COUNT, AUTOMATED 296 K/uL (150-450)
[2017-12-08 08:27] LABS: PLATELET COUNT, AUTOMATED 278 K/uL (150-450)
[2017-12-08 12:35] VITALS: BP 128/83
[2017-12-11 14:09] VITALS: BP 135/88
--- NOTE | 2017-12-11 15:43 | Oncology Note ---
EVALUATION~DATE~& TIME: 12/11/17 @1410 PRIMARY CARE PHYSICIAN: Nilesh Opsina LAST SEEN BY DR. KEVIN MD 10/16/17 ACCOMPANIED BY: Chief complaint: DIAGNOSIS Oncology History - January 10, 2014, Cervical biopsy done which came back positive for adenocarcinoma of the endocervix. with bilateral pelvic lymph node dissection done February 13, [address] Stanislav Espinoza in [place]. 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 There was negative lymphovascular invasion, focally involving the mucosal margin at three to six quadrants. A total of 11 pelvic lymph nodes were examined and all came back negative for malignancy. March 08, 2014 power port placement for chemotherapy 03/25/2014 cancer Staging : Stage IB (pT1b, pN0 cM0). Tapered off steroid for Autoimmune hemolytic Anemia in May 2017 Treatment March 13, 2014 through April 22, 2014, She received treatment with chemoradiation between and she received five weekly doses of cisplatin during radiation therapy. Currently she is in remission. 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 Patient presents to cancer center today for management of her disease. Patient reports being in her usual state of health, except her chronic back and leg pain and neuropathy. she has no other complaints. patient informs me that she is has intentionally lost 16 Lbs in preparation for her back surgery in May of 2018. She had previously gained 30lbs in one month period once she was started on steroids. Patient was tapered completely off steroids in May 2017. Her Hbg has a drop of 0.6 in the last three months. We will recheck hemolysis panel today. Hgb today is 11.8. last value of hapto on [employer] was 10L. low. Living conditions: Diagnostic tests & Reports Reviewed on [facility] PAST MEDICAL/SURGICAL HISTORY 1. Endocervical adenocarcinoma. 2. Gout. 3. Depression. 4. Autoimmune hemolytic anemia. 5. cellulitis of abdominal wall PAST SURGICAL HISTORY 1. Tonsillectomy as a child. 2. [place] tooth extraction. 3. Radical hysterectomy with bilateral salpingo-oophorectomy, and bilateral pelvic lymph node dissection done on February 03, 2014. FAMILY~HISTORY: Sister with colon cancer at the age of 39. Brother had eight polyps during his colonoscopy. Maternal uncle with colon cancer in his 50's. Another paternal uncle with colon cancer at old age. Paternal grandmother with uterine cancer. Two maternal aunts with breast cancer at old age. Father with basal cell carcinoma of the skin. Psychosocial History The patient is . Does not have children. 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 No abuse of tobacco, alcohol or drugs. Medications and Allergies Reported Medications SOCIAL /OCCUPATION HISTORY: PREVENTIVE' UP TO DATE Mammogram DUE 05/2018 Colonoscopy done in 2016, Polyps were removed . Due in 2021. given strong familial history. PAP: patient has not had pap or inspector of weights and measures follow up since 2013. Due PAP now 2018 MEDICATIONS: ALLERGIES: Cephalexin Review of System CONSTITUTION: denies fevers, sweats, change in appetite, energy, +intentional weight loss 16lbs since May 2017 EYES: No blurred vision, no double vision ENT: no mouth soreness, trouble swallowing, neck masses RESPIRATORY: Denies pleuritic pain, dyspnea, wheezing, coughing CARDIOVASCULAR: Denies cardiac type chest pain, palpitations, leg edema GI: denies trouble swallowing, indigestion, abdominal pain, diarrhea, constipation, : No blood in the urine, no urinary urgency/frequency, no dysuria, no MUSCULOSKELETAL: back pain NEURO: denies headaches, dizziness, + neuropathy, focal weakness SKIN: denies bruising, rashes, changing or suspicious lesions, HEMATOLOGY: denies spontaneous bleeding, denies non-palpable nodes PSYCH: denies mood changes Physical Exam Vital Signs Temperature: 97.1 Pulse: 91 BP Systolic: 135 BP Diastolic: 88 Respiratory Rate: 16 O2 SAT: 93 % RA O2 Delivery: Height (inches) Weight lb: Weight oz: Weight Kg (Matthias): Pain: PERFORMANCE STATUS: ECOG O- fully active, able to carry on all pre-disease performance w/o restriction GENERAL: pleasant conversant, in no apparent distress ORAL: mucosa moist without lesions, pharynx not injected EYES: no icterus, no pale conjunctivae, EOMI, PERRLA NECK: supple, no masses, no palpable lymph nodes LUNGS: clear to auscultation bilaterally, breathing, non-labored CVS: regular rate, rhythm, nl s1, s2, no murmurs ABD: normal bowel sounds, soft non tender, non-distended, no hepatomegaly, no splenomegaly, no masses EXTREMITIES: no edema, no cyanosis MUSCULOSKELETAL: grossly normal gait, range of motion stable NEURO: alert, appropriate, motor grossly normal, sensory grossly non focal, and cranial nerves grossly intact NODES: no cervical, supraclavicular, axillary, inguinal adenopathy SKIN: no ecchymosis, petechiae, no open wounds, no itchiness. PSYCH: normal mood and affect, good judgment and insight. 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 DIAGNOSTIC DATA CBC showed a white count of 4.9 , hemoglobin 11.8, mavdctfbtl31.5 , platelets 278. Chem panel totally normal except Sodium at 136, creatinine 0.80; BUN 20, T. Bili 1.3 CA125 Antigen 21.0 1. Autoimmune hemolytic anemia, diagnosed with high reticulocyte count, high LDH at 654 and low haptoglobin less than 10. Patient treated with prednisone 100 mg with improvement of her hemoglobin and normalization. She had successful prednisone taper after that and the patient is off prednisone since May 2017. Her current hemoglobin is 12.4 g/dL, which is normal. planning to continue followup. 2. Stage IB (pT1b, pN0 cM0) endocervical adenocarcinoma status post radical hysterectomy and pelvic lymph node dissection with bilateral salpingo- oophorectomy done February 03, 2014. Pathology was positive for 1.3 cm adenocarcinoma of the endocervix with positive cervical margin. Because of the positive margin the patient received chemotherapy and radiation therapy. She received treatment with chemoradiation between March 13, 2014 through April 22, 2014, and she received five weekly doses of cisplatin during radiation therapy. Currently she is in remission. 3. Gout with intermittent flare-ups, on allopurinol. 4. Depression on Wellbutrin reports that she is feeling well. 5. Back pain and leg pain ( chronic) .MRI completed showed arthritis. Patient followed with orthopedics and received a recommendation for surgical procedure. Patient would like to wait until she loses some weight. 6. Vitamin D deficiency. was treated with 50,000 units vitamin D3 3 days a week. encouraged to do weightbearing exercises. we will recheck today 7. Mammogram completed in 05/2017 unremarkable. Due in 06/2018 Colonoscopy completed 2016 was unremarkable.Due in 2021. 8. Vaginal Atrophy. She is concerned about vaginal stenosis. She does have a dilator at home but has not used it. She is not sexually active. She is encouraged to share this with her provider and a small speculum will be used. PLAN 1. Hemolysis panel to be drawn today including serum 25-hydroxyvitamin D (25[OH ]D) concentration 2. Continue followup. RTC Q 2months check CBC, chem panel and CA-125, hemolysis panel: Retic count, Haptoglobin, HDL 3. CBC in one month. 4. Patient to follow with primary care provider for WOUND NURSE exam, cholesterol, Vitamin D, TSH and iron studies which could be drawn through the [facility] labs. 5. Patient is to contact us for any new concern or complaints. 6. patient to f/u with MD/ROBERT a week before her planned surgery in May 2018. TIME SPENT: 25 minutes > 20 minutes includes but not limited to discussion, counselling and co-ordination~ of care. Discussion with other health care providers, record review, review of lab work, diagnostic tests. Plan discussed extensively with patient. All the questions answered today. Thank you for the opportunity to be involved in the care of Liliya Lisa Billing Level: Return visit level 4 KATALINA MENCHACA, ONC Dec 11, 2017 14:18
[~2017-12-12 15:30] MED LIST changes: +CALC500T6 PO; +IBUP-136 PO; -IBUP200C71 PO; +ZINC10LO9 PO
[2017-12-12 15:46] VITALS: BP 126/93
[2017-12-23] MEDS ORDERED: ALLO-2 PO (08:36)
== END 2018-01-01 ==
LOC: SPU 15:30
PROVIDERS: ATTEND Internal Medicine Hematology
DX: D59.1 Other autoimmune hemolytic anemias (principal); Z85.41 Personal history of malignant neoplasm of cervix uteri; Z92.21 Personal history of antineoplastic chemotherapy; Z57.1 Occupational exposure to radiation; M10.9 Gout, unspecified; F32.9 Major depressive disorder, single episode, unspecified; G62.9 Polyneuropathy, unspecified; Z79.899 Other long term (current) drug therapy; R06.02 Shortness of breath; M54.9 Dorsalgia, unspecified
CPT/HCPCS: 36415; 82040; 82247; 82306; 82310; 82374; 82435; 82565; 82947; 83010; 83615; 84075; 84132; 84155; 84295; 84450; 84460; 84520; 85025; 85045; 86304; 99212

== ENCOUNTER 2018-04-15 16:13 | Outpatient (RCR) | payer OTHER ==
[2018-01-30 10:24] LABS: PLATELET COUNT, AUTOMATED 305 K/uL (150-450)
[2018-02-05 09:35] VITALS: BP 119/84
--- NOTE | 2018-02-05 16:23 | ONCOLOGY FOLLOW UP NOTE ---
EVENT DATE: February 05, 2018 DIAGNOSES 1. Endocervical carcinoma. 2. Gout. 3. Depression. 4. Autoimmune hemolytic anemia, warm antibody. CHIEF COMPLAINT Patient is here today for followup of her autoimmune hemolytic anemia and endocervical carcinoma. ONCOLOGY HISTORY The patient is a 52-year-old woman. Presentation for postcoital bleeding. PROCEDURES 1. Cervical biopsy done January 10, 2014, which came back positive for adenocarcinoma of the endocervix. 2. Radical abdominal hysterectomy with bilateral salpingo-oophorectomy with bilateral pelvic lymph node dissection done February 13, [address] Stanislav Espinoza in [place]. 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 There was negative lymphovascular invasion, focally involving the mucosal margin at three to six quadrants. A total of 11 pelvic lymph nodes were examined and all came back negative for malignancy. STAGE Stage IB (pT1b, pN0 cM0). TREATMENT Patient received chemoradiation between March 13, 2014 through April 22, 2014. She received five weekly doses of Cisplatin during her radiation therapy. HISTORY OF PRESENT ILLNESS Patient is here today for followup of her autoimmune hemolytic anemia and endocervical carcinoma. She is doing fine currently except for having some arthritis of the ankles and hands with pain. 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 She is a little bit weak, tired and fatigued. PAST MEDICAL HISTORY 1. Endocervical adenocarcinoma. 2. Gout. 3. Depression. 4. Autoimmune hemolytic anemia. PAST SURGICAL HISTORY 1. Tonsillectomy as a child. 2. [place] tooth extraction. 3. Radical hysterectomy with bilateral salpingo-oophorectomy, and bilateral pelvic lymph node dissection done on February 03, 2014. FAMILY HISTORY Sister with colon cancer at the age of 39. Brother had eight polyps during his colonoscopy. Maternal uncle with colon cancer in his 50's. Another paternal uncle with colon cancer at old age. Paternal grandmother with uterine cancer. Two maternal aunts with breast cancer at old age. Father with basal cell carcinoma of the skin. SOCIAL HISTORY The patient is . Does not have children. 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 No abuse of tobacco, alcohol or drugs. CURRENT MEDICATIONS 1. Fluoxetine hydrochloride 40 mg daily. 2. Ibuprofen 200 mg every six hours p.r.n. 3. Unisom 50 mg at bedtime. 4. Zantac 150 mg as needed. 5. Caffeine 100 mg every morning, chewable. ALLERGIES CEPHALEXIN which causes generalized hives. REVIEW OF SYSTEMS CONSTITUTIONAL: Patient has some sweating. HEENT: Ears: No tinnitus or hearing problem. Nose: The patient has runny nose. Throat: No sore throat or mouth ulcers. Eyes: No diplopia or visual changes. RESPIRATORY: She has shortness of breath and wheezing. CARDIOVASCULAR: No chest pain, orthopnea, or paroxysmal nocturnal dyspnea (PND) . No edema. No palpitations. GASTROINTESTINAL: She has diarrhea most of the time for the last week with nonbloody loose stools. GENITOURINARY: No hematuria or dysuria. MUSCULOSKELETAL: She has pain in he ankles and hands from arthritis. NEUROLOGICAL: She has tingling and numbness in the right foot due to radicular pain. HEMATOLOGICAL: She is weak, tired and fatigued. SKIN: She had recent cellulitis of the abdominal wall, which is under treatment with Bactrim. PSYCHIATRIC: No anxiety or depression. PHYSICAL EXAMINATION GENERAL: Looks stable. Well-developed, well-nourished, and in no acute distress. VITAL SIGNS: Blood pressure 119/84, pulse 91 per minute, respirations 16 per minute, temperature 98.1, pulse ox 92% on room air. HEENT: Head: Atraumatic. No sinus tenderness to palpation. Eyes: No icterus or conjunctivitis. Mouth and throat: No oral thrush or mucositis. NECK: Supple. No cervical or supraclavicular lymphadenopathy. LUNGS: Clear to auscultation and percussion bilaterally. HEART: Regular rate and rhythm. No gallops, murmurs, clicks or rubs. ABDOMEN: Soft and lax. No tenderness. Scar from recent surgery is noted and healing very well. No hepatosplenomegaly. No masses. EXTREMITIES: No cyanosis, clubbing or edema. LYMPHATICS: No peripheral lymphadenopathy. NEUROLOGICAL: Conscious, alert and oriented times three. No focal motor or sensory deficits. PSYCHIATRIC: Mood and affect appear normal. SKIN: No skin rash, bruise or purpuric eruption. DIAGNOSTIC DATA CBC showed a white count of 5000, hemoglobin 12, hematocrit 34.2, platelets 305, 000. Chem panel totally normal, except BUN 20. LDH is 535. Absolute reticulocyte count is 0.2576. Haptoglobin is less than 10. ASSESSMENT 1. Autoimmune hemolytic anemia, diagnosed with high reticulocyte count, high LDH at 654 and low haptoglobin less than 10. Patient treated with prednisone 100 mg with improvement of her hemoglobin and normalization. She had successful prednisone taper after that and the patient is off prednisone since May 2017. Her haptoglobin is still less than 10 and the patient may have compensated hemolysis as her hemoglobin currently is normal at 12 g/dL. I am planning to put her on folic acid 1 mg daily. I will repeat her CBC and haptoglobin in six weeks, and I will see her again in three months with CBC and haptoglobin, retic count, LDH by that time. 2. Stage IB (pT1b, pN0 cM0) endocervical adenocarcinoma status post radical hysterectomy and pelvic lymph node dissection with bilateral salpingo- oophorectomy done February 03, 2014. Pathology was positive for 1.3 cm adenocarcinoma of the endocervix with positive cervical margin. Because of the positive margin the patient received chemotherapy and radiation therapy. She received treatment with chemoradiation between March 13, 2014 through April 22, 2014, and she received weekly doses of cisplatin during radiation therapy. Currently she is in remission. I am planning to see her in three months from now, and I will check her CBC, chem panel and CA-125 at that time. 3. Gout with intermittent flare-ups, on allopurinol. 4. Depression on treatment. PLAN 1. Continue followup. 2. CBC, haptoglobin to be checked in six weeks. 3. Folic acid 1 mg p.o. daily. 4. Patient to return in three months with CBC, chem panel, haptoglobin, LDH, retic count and CA-125. 5. Patient is to contact us for any new concerns or complaints. MTDD
[2018-03-20 08:12] VITALS: BP 118/80
[2018-03-20 08:19] LABS: PLATELET COUNT, AUTOMATED 273 K/uL (150-450)
[~2018-04-15 16:13] MED LIST changes: +MULT-1335 PO
[2018-04-15 16:29] VITALS: BP 127/90
== END 2018-04-29 ==
LOC: SPU 16:13
PROVIDERS: ATTEND Internal Medicine Hematology
DX: D59.1 Other autoimmune hemolytic anemias (principal); Z85.41 Personal history of malignant neoplasm of cervix uteri; Z92.21 Personal history of antineoplastic chemotherapy; Z57.1 Occupational exposure to radiation; M10.9 Gout, unspecified; F32.9 Major depressive disorder, single episode, unspecified; G62.9 Polyneuropathy, unspecified; Z79.899 Other long term (current) drug therapy; R06.02 Shortness of breath; M54.9 Dorsalgia, unspecified; Z87.891 Personal history of nicotine dependence; Z90.710 Acquired absence of both cervix and uterus
CPT/HCPCS: 36415; 82040; 82247; 82248; 82310; 82374; 82435; 82565; 82947; 83010; 83615; 84075; 84132; 84155; 84295; 84450; 84460; 84520; 85025; 85045; 99212

== ENCOUNTER 2018-05-28 14:58 | Outpatient (RCR) | payer OTHER ==
[2018-05-11 08:21] VITALS: BP 137/85
[2018-05-11 15:42] LABS: PLATELET COUNT, AUTOMATED 306 K/uL (150-450)
[2018-05-28 15:07] VITALS: BP 132/93
[2018-05-28] MEDS ORDERED: INFLUENZA VIRUS VAC 0.5ML SYR IM ONLY ONE (15:25)
--- NOTE | 2018-05-29 02:45 | [facility] ONCOLOGY NOTE ---
EVENT DATE: May 28, 2018 DIAGNOSES 1. Endocervical carcinoma. 2. Gout. 3. Depression. 4. Autoimmune hemolytic anemia, warm antibody. CHIEF COMPLAINT Patient is here today for followup of her autoimmune hemolytic anemia and endocervical carcinoma. ONCOLOGY HISTORY The patient is a 52-year-old woman. Presentation for postcoital bleeding. PROCEDURES 1. Cervical biopsy done January 10, 2014, which came back positive for adenocarcinoma of the endocervix. 2. Radical abdominal hysterectomy with bilateral salpingo-oophorectomy with bilateral pelvic lymph node dissection done February 13, [address] Stanislav Espinoza in [place]. 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 There was negative lymphovascular invasion, focally involving the mucosal margin at three to six quadrants. A total of 11 pelvic lymph nodes were examined and all came back negative for malignancy. STAGE Stage IB (pT1b, pN0 cM0). TREATMENT Patient received chemoradiation between March 13, 2014 through April 22, 2014. She received five weekly doses of Cisplatin during her radiation therapy. HISTORY OF PRESENT ILLNESS Patient is here today for followup of her autoimmune hemolytic anemia and endocervical carcinoma. She is doing fine currently except for worsening joint pain, especially in the knees, back, legs, and hands. She has also occasional diarrhea and headache. She has also neuropathy in her feet. PAST MEDICAL HISTORY 1. Endocervical adenocarcinoma. 2. Gout. 3. Depression. 4. Autoimmune hemolytic anemia. PAST SURGICAL HISTORY 1. Tonsillectomy as a child. 2. [place] tooth extraction. 3. Radical hysterectomy with bilateral salpingo-oophorectomy, and bilateral pelvic lymph node dissection done on February 03, 2014. FAMILY HISTORY Sister with colon cancer at the age of 39. Brother had eight polyps during his colonoscopy. Maternal uncle with colon cancer in his 50's. Another paternal uncle with colon cancer at old age. Paternal grandmother with uterine cancer. Two maternal aunts with breast cancer at old age. Father with basal cell carcinoma of the skin. SOCIAL HISTORY The patient is . Does not have children. 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 No abuse of tobacco, alcohol or drugs. CURRENT MEDICATIONS 1. Fluoxetine hydrochloride 40 mg daily. 2. Ibuprofen 200 mg every six hours p.r.n. 3. Unisom 50 mg at bedtime. 4. Zantac 150 mg as needed. 5. Caffeine 100 mg every morning, chewable. ALLERGIES CEPHALEXIN which causes generalized hives. REVIEW OF SYSTEMS CONSTITUTIONAL: No appetite or weight change. No fever, chills or sweating. No recent infection. HEENT: Ears: No tinnitus or hearing problem. Nose: No nasal discharge or epistaxis. Throat: No sore throat or mouth ulcers. Eyes: No diplopia or visual changes. RESPIRATORY: No shortness of breath. No cough, expectoration or hemoptysis. CARDIOVASCULAR: No chest pain, orthopnea, or paroxysmal nocturnal dyspnea (PND). No edema. No palpitations. GASTROINTESTINAL: She has occasional diarrhea. GENITOURINARY: No hematuria or dysuria. MUSCULOSKELETAL: She has pain in the knees, back, legs, and hands. NEUROLOGICAL: She has tingling and numbness in her feet. She has occasional headache. HEMATOLOGIC/LYMPHATIC: No bleeding or easy bruising. No weakness or fatigued. No enlarged lymph nodes. SKIN: No skin rash or lumps. PSYCHIATRIC: No anxiety or depression. PHYSICAL EXAMINATION GENERAL: Looks stable. Well-developed, well-nourished, and in no acute distress. VITAL SIGNS: Blood pressure 132/93, pulse 90 per minute, respirations 18 per minute, temperature 97.5, pulse oximetry 95% on room air. HEENT: Head: Atraumatic. No sinus tenderness to palpation. Eyes: No icterus or conjunctivitis. Mouth and throat: No oral thrush or mucositis. NECK: Supple. No cervical or supraclavicular lymphadenopathy. LUNGS: Clear to auscultation and percussion bilaterally. HEART: Regular rate and rhythm. No gallops, murmurs, clicks or rubs. ABDOMEN: Soft and lax. No tenderness. No hepatosplenomegaly. No masses. EXTREMITIES: No cyanosis, clubbing or edema. LYMPHATICS: No peripheral lymphadenopathy. NEUROLOGICAL: Conscious, alert and oriented times three. No focal motor or sensory deficits. PSYCHIATRIC: Mood and affect appear normal. SKIN: No skin rash, bruise or purpuric eruption. DIAGNOSTIC DATA CBC showed a white count of 4.3, hemoglobin 12.7, hematocrit 36.6, platelet 306,000. Haptoglobin is less than 10. Absolute reticulocyte count is 0.1556, which is down from 0.2087. Chem panel totally normal except sodium 136, total protein 6. CA125 is 19, which is down from 21. ASSESSMENT 1. Autoimmune hemolytic anemia, diagnosed with high reticulocyte count, high LDH at 654, and low haptoglobin level of less than 10. Patient was started on treatment with prednisone 100 mg with improvement of her hemoglobin with normalization. She had successful prednisone taper after that, and she is off prednisone since May 2017. Her haptoglobins are still less than 10, so the patient has compensated hemolysis. Her current hemoglobin is 12.7, which is stable. I am planning to continue folic acid 1 mg daily. I will repeat her CBC, haptoglobin, LDH, absolute reticulocyte count, and total and direct bilirubin with her next visit in three months, and the patient was advised to report any excessive fatigue. 2. Stage IB (pT1b, pN0, cM0) endocervical adenocarcinoma, status post radical hysterectomy and pelvic lymph node dissection with bilateral salpingo- oophorectomy, done February 03, 2014. Pathology was positive for 1.3 cm adenocarcinoma of the endocervix with positive cervical margin. Because of the positive margin, the patient received chemotherapy and radiation therapy. She received treatment with chemoradiation between March 13, 2014, through April 22, 2014, and she received weekly doses of cisplatin during radiation therapy and currently is in complete remission. Her current CA125 is 19, which is down from 21. I am planning to continue followup every four months. 3. Gout with intermittent flare-ups, on allopurinol. 4. Depression, on treatment. PLAN 1. Continue followup. 2. Patient to return in three months with CBC, chem panel, CA125, LDH, absolute reticulocyte count, total and direct bilirubin, and haptoglobin level. 3. Patient to contact us for any new concern or complaints. MTDD
== END 2018-08-09 ==
LOC: ONC 14:58
PROVIDERS: ATTEND Internal Medicine Hematology
DX: D59.1 Other autoimmune hemolytic anemias (principal); Z85.41 Personal history of malignant neoplasm of cervix uteri; Z92.21 Personal history of antineoplastic chemotherapy; Z57.1 Occupational exposure to radiation; M10.9 Gout, unspecified; F32.9 Major depressive disorder, single episode, unspecified; G62.9 Polyneuropathy, unspecified; Z79.899 Other long term (current) drug therapy; R06.02 Shortness of breath; M54.9 Dorsalgia, unspecified; Z87.891 Personal history of nicotine dependence; Z90.710 Acquired absence of both cervix and uterus; Z23 Encounter for immunization
CPT/HCPCS: 36415; 82040; 82247; 82248; 82310; 82374; 82435; 82565; 82947; 83010; 83615; 84075; 84132; 84155; 84295; 84450; 84460; 84520; 85025; 85045; 86304; 90471; 90674; 99212

== ENCOUNTER 2018-10-26 16:18 | Outpatient (RCR) | payer OTHER ==
[2018-08-21 08:27] VITALS: BP 141/85
[2018-08-21 08:37] LABS: PLATELET COUNT, AUTOMATED 328 K/uL (150-450)
[2018-09-11 15:58] VITALS: BP 132/85
--- NOTE | 2018-09-12 03:58 | [facility] ONCOLOGY NOTE ---
EVENT DATE: September 11, 2018 DIAGNOSES 1. Endocervical carcinoma. 2. Gout. 3. Depression. 4. Autoimmune hemolytic anemia, warm antibody. CHIEF COMPLAINT Patient is here today for followup of her autoimmune hemolytic anemia and endocervical carcinoma. ONCOLOGY HISTORY The patient is a 53-year-old woman. Presentation for postcoital bleeding. PROCEDURES 1. Cervical biopsy done January 10, 2014, which came back positive for adenocarcinoma of the endocervix. 2. Radical abdominal hysterectomy with bilateral salpingo-oophorectomy with bilateral pelvic lymph node dissection done February 13, [address] Stanislav Espinoza in [place]. 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 There was negative lymphovascular invasion, focally involving the mucosal margin at three to six quadrants. A total of 11 pelvic lymph nodes were examined and all came back negative for malignancy. STAGE Stage IB (pT1b, pN0 cM0). TREATMENT Patient received chemoradiation between March 13, 2014 through April 22, 2014. She received five weekly doses of Cisplatin during her radiation therapy. HISTORY OF PRESENT ILLNESS Patient is here today for followup of her autoimmune hemolytic anemia and endocervical cancer. She is complaining of cough with expectoration, shortness of breath and wheezing. She has occasional diarrhea associated with abdominal cramps sometimes. She has also generalized musculoskeletal pain. She has headache. She bruises easily. PAST MEDICAL HISTORY 1. Endocervical adenocarcinoma. 2. Gout. 3. Depression. 4. Autoimmune hemolytic anemia. PAST SURGICAL HISTORY 1. Tonsillectomy as a child. 2. Boles tooth extraction. 3. Radical hysterectomy with bilateral salpingo-oophorectomy, and bilateral pelvic lymph node dissection done on February 03, 2014. FAMILY HISTORY Sister with colon cancer at the age of 39. Brother had eight polyps during his colonoscopy. Maternal uncle with colon cancer in his 50's. Another paternal uncle with colon cancer at old age. Paternal grandmother with uterine cancer. Two maternal aunts with breast cancer at old age. Father with basal cell carcinoma of the skin. SOCIAL HISTORY The patient is . Does not have children. 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 No abuse of tobacco, alcohol or drugs. CURRENT MEDICATIONS 1. Fluoxetine hydrochloride 40 mg daily. 2. Ibuprofen 200 mg every six hours p.r.n. 3. Unisom 50 mg at bedtime. 4. Zantac 150 mg as needed. 5. Caffeine 100 mg every morning, chewable. 6. Folic acid 1 mg daily. ALLERGIES CEPHALEXIN which causes generalized hives. REVIEW OF SYSTEMS CONSTITUTIONAL: No appetite or weight change. No fever, chills or sweating. No recent infection. HEENT: Ears: No tinnitus or hearing problem. Nose: No nasal discharge or epistaxis. Throat: No sore throat or mouth ulcers. Eyes: No diplopia or visual changes. RESPIRATORY: Patient has cough with expectoration, shortness of breath and wheezing. CARDIOVASCULAR: No chest pain, orthopnea, or paroxysmal nocturnal dyspnea (PND). No edema. No palpitations. GASTROINTESTINAL: She has occasional diarrhea associated with abdominal cramps. GENITOURINARY: No hematuria or dysuria. MUSCULOSKELETAL: She has generalized musculoskeletal pain. NEUROLOGICAL: She has occasional headache. HEMATOLOGIC/LYMPHATIC: She bruises easily. SKIN: No skin rash or lumps. PSYCHIATRIC: No anxiety or depression. PHYSICAL EXAMINATION GENERAL: Looks stable. Well-developed, well-nourished, and in no acute distress. VITAL SIGNS: Blood pressure 132/85, pulse 88 per minute, respirations 16 per minute, temperature 96.7, pulse oximetry 97% on room air. HEENT: Head: Atraumatic. No sinus tenderness to palpation. Eyes: No icterus or conjunctivitis. Mouth and throat: No oral thrush or mucositis. NECK: Supple. No cervical or supraclavicular lymphadenopathy. LUNGS: Clear to auscultation and percussion bilaterally. HEART: Regular rate and rhythm. No gallops, murmurs, clicks or rubs. ABDOMEN: Soft and lax. No tenderness. No hepatosplenomegaly. No masses. EXTREMITIES: No cyanosis, clubbing or edema. LYMPHATICS: No peripheral lymphadenopathy. NEUROLOGICAL: Conscious, alert and oriented times three. No focal motor or sensory deficits. PSYCHIATRIC: Mood and affect appear normal. SKIN: No skin rash, bruise or purpuric eruption. DIAGNOSTIC DATA CBC showed a white count of 5.1, hemoglobin 11.7, hematocrit 34.5, platelets 328,000. Absolute reticulocyte count is 0.2969. Haptoglobin is less than 10. LDH is elevated at 721 and total bilirubin is 1.3. Chem panel showed blood sugar 123, BUN 22. CA125 is normal at 19. ASSESSMENT 1. Autoimmune hemolytic anemia, diagnosed by high reticulocyte count, high LDH, and low haptoglobin less than 10. Patient treated with prednisone, started at 100 mg with improvement of her hemoglobin with normalization. She had successful prednisone taper after that, and she is off prednisone since May 2017. She is still hemolyzing, but she has compensated hemolysis, as her haptoglobin is still less than 10, LDH is high at 721, absolute reticulocyte count is high at 0.2969, and her current hemoglobin is 11.7. I am planning to continue folic acid 1 mg daily. I will check her CBC every six weeks. I will see her again in three months with CBC, reticulocyte count, haptoglobin, and LDH. 2. Stage IB (pT1b, pN0, cM0) endocervical adenocarcinoma, status post radical hysterectomy and pelvic lymph node dissection with bilateral salpingo- oophorectomy, done February 03, 2014. Pathology was positive for 1.3 cm adenocarcinoma of the endocervix with positive cervical margin. Because of the positive margin, the patient received chemotherapy and radiation therapy. She received treatment with chemoradiation between March 13, 2014, through April 22, 2014, and she received weekly doses of cisplatin during radiation therapy. She currently is in complete remission. Her current CA125 is 19, which is stable. I am planning to continue followup every four months. 3. Gout with intermittent flare-ups, on allopurinol. 4. Depression, on treatment. PLAN 1. Continue followup. 2. Continue folic acid 1 mg daily. 3. Patient to return in three months with CBC, chem panel, CA125, LDH, absolute reticulocyte count, total and direct bilirubin, and haptoglobin level. 4. Patient to contact us for any new concern or complaints. 5. CBC to be checked every six weeks. MTDD
[2018-10-23 16:07] VITALS: BP 139/79
[2018-10-23 16:28] LABS: PLATELET COUNT, AUTOMATED 282 K/uL (150-450)
[2018-10-26 16:31] VITALS: BP 114/84
== END 2018-11-19 ==
LOC: SPU 16:18
PROVIDERS: ATTEND Internal Medicine Hematology
DX: C53.9 Malignant neoplasm of cervix uteri, unspecified (principal); M10.9 Gout, unspecified; F32.9 Major depressive disorder, single episode, unspecified
CPT/HCPCS: 36415; 82040; 82247; 82248; 82310; 82374; 82435; 82565; 82947; 83010; 83615; 84075; 84132; 84155; 84295; 84450; 84460; 84520; 85025; 85045; 86304; 99212

== ENCOUNTER → 2019-01-27 | Outpatient (CLI) | payer OTHER ==
[~2019-01-27] MED LIST changes: +CHOL10005 PO; +ESC10 PO; +FOLI-68 PO
== END ==
LOC: LAB 16:31
PROVIDERS: ATTEND Emergency Medicine
DX: R73.03 Prediabetes (principal); I10 Essential (primary) hypertension; E53.8 Deficiency of other specified B group vitamins; E55.9 Vitamin D deficiency, unspecified
CPT/HCPCS: 36415; 82306; 82465; 82607; 83036; 83718; 84443; 84478